=== PATIENT | female | born 1975 | race Caucasian/White ===

== ENCOUNTER 2016-05-10 08:18 | Emergency (ER) | payer SELFPAY ==
[2016-05-10 09:01] LABS: SPECIFIC GRAVITY 1.015 (1.001-1.030); URINE BILIRUBIN NEGATIVE (NEGATIVE); URINE BLOOD TRACE (NEGATIVE); URINE GLUCOSE (UA) NEGATIVE (NEGATIVE); URINE LEUKOCYTE ESTERASE 2+ (NEGATIVE); URINE NITRITE POSITIVE (NEGATIVE); URINE PROTEIN 1+ (NEGATIVE); URINE UROBILINOGEN NORMAL (0-1 mg/dl)
[2016-05-10 09:07] LABS: URINE APPEARANCE HAZY; URINE COLOR YELLOW
[2016-05-10 09:09] LABS: HCG,QUALITATIVE URINE NEGATIVE
[2016-05-10 09:14] LABS: URINE BACTERIA 4+; URINE WBC 20-30 /hpf
[2016-05-10] MEDS ORDERED: ACETAMINOPHEN 325 MG TABLET ONE (09:41)
[2016-05-10] MEDS ORDERED: CEFTRIAXONE 1 GRAM DUPLEX 50 ML IV ONE (09:41)
[2016-05-10 10:28] LABS: ALB/GLOB RATIO 1.3 (>1.0); ALBUMIN 3.8 gm/dL (3.5-5.7); CALCIUM 8.8 mg/dL (8.6-10.3)
[2016-05-10 10:43] LABS: ABSOLUTE NEUTROPHIL COUNT 7.9 K/mm3 (1.8-7.7); BASO # 0.1 K/mm3 (0.0-0.2); BASO % 0.4 % (0.2-1.0); EOS # 0.2 (0.0-0.5); EOS % 1.7 % (0.9-2.9); HEMATOCRIT 39.7 % (37.0-47.0); HEMOGLOBIN 12.9 gm/l (12.0-16.0); IMM NEUT # 0.1 K/mm3 (0-0.2); IMM NEUT% 0.4 % (0-1); LYMPH % 17.4 % (15-45); MEAN CELL VOLUME 98.5 fl (81.0-99.0); MEAN CORPUSCULAR HGB CONC 32.5 g/dl (33.0-37.0); MEAN PLATELET VOLUME 9.7 fl (7.4-10.4); MONO # 1.1 (0.0-0.8); MONO % 9.8 % (4-12); NEUT % 70.3 % (43-75); PLATELET COUNT 280 K/mm3 (130-400); RED CELL DISTRIBUTION WIDTH 12.3 % (11.5-14.5)
--- NOTE | 2016-05-10 11:18 | US ---
EXAMINATION: Limited gallbladder ultrasound examination was performed. CLINICAL INDICATION: Right upper quadrant pain. COMPARISON: None FINDINGS: Gallbladder: 7.6 cm in length. Cholelithiasis:None Gallbladder wall thickness: $2.3 million millimeters. Pericholecystic fluid: Absent Common bile duct:Not dilated and measures 3 millimeters. Sonographic Horn's sign: None elicited IMPRESSION: Normal gallbladder ultrasound. The findings were uploaded to the electronic medical record for review at approximately 11:18 AM 05/10/2016
== END 2016-05-10 13:06 | disposition home or self-care (01) ==
LOC: ED 08:18
DX: N12 Tubulo-interstitial nephritis, not specified as acute or chronic (principal); F41.9 Anxiety disorder, unspecified; F32.9 Major depressive disorder, single episode, unspecified; F17.210 Nicotine dependence, cigarettes, uncomplicated
CPT/HCPCS: 83690; 81025; 85025; 87086; 80053; 87186; 81001; 76705; 99284 ×2; 96374; A9270; J0696